=== PATIENT | female | born 1980 | race Caucasian/White ===

== ENCOUNTER → 2018-06-05 | Outpatient (CLI) | payer BC, OTHER | LOC: RAD 01:17 | DX: Z12.31 Encounter for screening mammogram for malignant neoplasm of breast (principal) ==

== ENCOUNTER → 2018-06-28 | Outpatient (CLI) | payer BC, OTHER | LOC: MRI 10:08 | DX: N64.4 Mastodynia (principal); R92.2 Inconclusive mammogram ==

== ENCOUNTER → 2019-12-06 | Outpatient (CLI) | payer BC, OTHER | LOC: RAD 10:03 | PROVIDERS: ATTEND Nurse Practitioner | DX: Z12.31 Encounter for screening mammogram for malignant neoplasm of breast (principal) ==